=== PATIENT | female | born 1960 | race Caucasian/White ===

== ENCOUNTER 2020-09-23 19:05 | Emergency (ER) | payer OTHER, SELFPAY ==
[2020-09-23 19:13] VITALS: BP 120/77; PULSE 89; RESP 20; TEMP 36.6; O2SAT 98
--- NOTE | 2020-09-23 20:30 | DI.RAD.S_ITS ---
PROCEDURE: XR HUMERUS RT 2V INDICATIONS: fall TECHNIQUE: 2 views of the humerus were acquired. COMPARISON: None. FINDINGS: Bones: No fractures or dislocations. No suspicious bony lesions. Soft tissues: No suspicious soft tissue calcifications. IMPRESSION: No acute humeral fracture or dislocation. Dictated by: Nadir De Jesus M.D. on 09/23/2020 at 20:49 Approved by: Nadir De Jesus M.D. on 09/23/2020 at 20:51
[2020-09-23] MEDS: BACITRACIN OINT 0.9 GM PCKT 1 APPLIC TOP (20:53)
[2020-09-23] MEDS: IBUPROFEN 400 MG TABLET PO (20:53)
[2020-09-23] MEDS: LIDO 1%/SOD BICARB 8.4% (10ML) 10 ML SYRINGE INJ (20:54)
[2020-09-23] MEDS: ACETAMINOPHEN 325 MG TABLET PO (20:54)
--- NOTE | 2020-09-23 21:18 | ED.WOUNDLAC ---
HPI - Wound/Laceration General Chief Complaint: Wound/Laceration Stated Complaint: rt lower leg cut Time Seen by Provider: 09/23/20 20:16 Source: patient Mode of arrival: Ambulatory History of Present Illness HPI narrative: 60-year-old woman with no significant medical history was out walking with her granddaughter in the [place] stumbled over a stick and fell with the stick in pale [place] at the anterior portion of her right turcios. She also landed on her right arm is complaining of some proximal humerus pain with some mild contusion along the forearm. There is no other injury. She did not hit her head and is not complaining of head pain, neck pain or hip pain. Related Data Previous Rx's Medication Instructions Recorded cephalexin 500 mg capsule 500 mg PO TID #15 cap 09/23/20 Allergies Allergy/AdvReac Type Severity Reaction Status Date / Time No Known Drug Allergies Allergy Verified 09/23/20 21:12 Review of Systems Review of Systems Narrative: Pertinent positive and negative findings as per HPI Remainder of review of systems is otherwise unremarkable for Constitutional: Fevers, chills, weakness ENT: No sore throat, neck pain, ear pain CV: Chest pain, palpitations, Respiratory: Cough, wheeze, dyspnea GI: Nausea, vomiting, diarrhea, : Dysuria, hematuria, Exam Narrative Exam Narrative: General: Healthy appearing, in no acute distress. Able to give a complete and coherent history. Well-nourished well-developed HEENT: Moist mucous membranes, normal sclera with reactive pupils, Neck: No midline cervical tenderness, supple Respiratory: Lungs are clear to auscultation, no wheezing no rales no rhonchi. Full and symmetrical air movement Cardiac: Regular rate and rhythm no murmurs no bruits Chest: No pain or tenderness with compression of the rib cage Abdomen: Soft, nontender, good bowel tones, no flank pain Skin: Warm and dry, no rashes Neurologic: Grossly neurologically intact with no obvious asymmetries or abnormalities Extremities: Right forearm with some minor contusions on along the edge and tenderness to the proximal humerus without contusion or abrasion. Right turcios has a 4 cm angled flap like laceration with deeper puncture wound not extending to the bone appreciated underneath Psych: Cooperative, appropriate insight and affect Initial Vital Signs Initial Vital Signs: Vital Signs Temperature 97.8 F 09/23/20 19:13 Pulse Rate 89 09/23/20 19:13 Respiratory Rate 20 09/23/20 19:13 Blood Pressure 120/77 09/23/20 19:13 Pulse Oximetry 98 09/23/20 19:13 Procedures Laceration Repair Right anterior turcios: Site: lower extremity Side (If applicable): right Size (cm): 4 Description: flap Depth: involves muscle layer Local Anesthetic: lidocaine 1% and with bicarb Amount of anesthesia used (mL): 5 Pre-repair: wound explored, irrigated extensively and deep structures intact (Deep fascia and periosteal layers are not involved) Skin layer closed with: nylon Size (cm): 3-0 Number of sutures: 3 Technique: simple, interrupted and horizontal mattress Course Orders Ordered: ED Orders 09/23/20 20:30 XR humerus RT 2V Stat Discontinued Medications Acetaminophen (Acetaminophen 325 Mg Tablet) 325 mg PO NOW ONE Stop: 09/23/20 20:31 Last Admin: 09/23/20 20:54 Dose: 325 mg Documented by: ZACH Bacitracin (Bacitracin Oint 0.9 Gm Pckt) 1 applic TOP NOW ONE Stop: 09/23/20 20:31 Last Admin: 09/23/20 20:53 Dose: 1 applic Documented by: ZACH Ibuprofen (Ibuprofen 400 Mg Tablet) 400 mg PO NOW ONE Stop: 09/23/20 20:31 Last Admin: 09/23/20 20:53 Dose: 400 mg Documented by: ZACH Lidocaine/Sodium Bicarbonate (Lido 1%/Sod Bicarb 8.4% (10ml) 10 Ml Syringe) 10 ml INJ NOW ONE Stop: 09/23/20 20:31 Last Admin: 09/23/20 20:54 Dose: 10 ml Documented by: ZACH Vital Signs Vital signs: Vital Signs - 8 hr 09/23/20 21:41 Pulse Rate 65 Respiratory Rate 16 Pulse Oximetry 100 MDM - Wound/Laceration Imaging Data XR humerus: Radiologist's Impression: FINDINGS: Bones: No fractures or dislocations. No suspicious bony lesions. Soft tissues: No suspicious soft tissue calcifications. IMPRESSION: No acute humeral fracture or dislocation. Dictated by: Nadir De Jesus M.D. on 09/23/2020 at 20:49 MDM Narrative Medical decision making narrative: 60-year-old woman tripped over a cystic while on a hike today. Laceration to the right turcios. Wound is extensively irrigated. Periosteal in deep fascial layers are not violated. Moderately loose closure with a central horizontal mattress to reapproximate the apex and 2 simple interrupted sutures to reapproximate skin edges but still allow for drainage should it develop. She is given a prescription for Keflex to begin if there are signs of developing infection. She has had significant adverse reaction to tetanus shots in the past and declines 1 today. No evidence of proximal humerus fracture. No other trauma appreciated. Patient is safe for home discharge Discharge Plan Departure Patient Disposition: Home Clinical Impression: Laceration Instructions: DI for Laceration Repair Activity Restrictions/Additional Instructions: Thank you for coming in today Your upper arm is certainly contused but there are no broken bones. The laceration on your leg was relatively deep. Was cleaned out well. If there is increasing redness, pain or any drainage please start the antibiotics to prevent infection. You do not need the antibiotics unless it does appear to be infected. Please use antibiotic ointment and a Band-Aid over the area. The stitches will need to come out on or about October 03. Using 400 mg of ibuprofen (2 [id number] pills) and 1 Tylenol every 6 hours can be very helpful in controlling pain. You may find that some ice to the wound on your leg helps with some of the swelling this evening. If you have new or worsening symptoms please return to the ER Prescriptions: New cephalexin 500 mg capsule 500 mg PO TID Qty: 15 RF: 0
[2020-09-23 21:41] VITALS: PULSE 65; RESP 16; O2SAT 100
== END 2020-09-23 21:43 | disposition home or self-care (01) ==
PROVIDERS: Emergency Provider Emergency Medicine
DX: S81.811A Laceration without foreign body, right lower leg, initial encounter (principal); W19.XXXA Unspecified fall, initial encounter
CPT/HCPCS: 13121; 73060; 99283; 99284